=== PATIENT | female | born 1925 | race Hispanic/Latino ===

== ENCOUNTER 2016-06-24 11:42 | Emergency (ER) | payer MEDICARE, BC ==
[2016-06-24 11:42] VITALS: PULSE 93
[2016-06-24 12:01] VITALS: BMI 32.2
[2016-06-24 12:03] VITALS: TEMP 98.7; O2SAT 96
--- NOTE | 2016-06-24 12:14 | ED PDOC ---
Arrival/HPI - General Chief Complaint: Trauma Time Seen by Provider: 06/24/16 12:09 Historian: Patient, Family - History of Present Illness Narrative History of Present Illness (Text): 06/24/16 12:12 89 year old female with a past medical history that includes atrial fibrillation on Warfarin, presents to the emergency department with right buttock pain after mechanical fall on 06/11/16. Family states she has been given Oxycodone for the pain with last dose 10:00 today. She states the patient has taken 8 pills since two days ago with only temporary relief. She reports the patient uses a walker at baseline. PMD: Dr. Gage Berman Past Medical History - Provider Review Nursing Documentation Reviewed: Yes - Reproductive Menopause: No - Cardiac Hx Atrial Fibrillation: Yes Hx Hypertension: Yes Hx Mitral Valve Prolapse: Yes Hx Pacemaker: No - Pulmonary Hx Respiratory Disorders: Yes Hx Emphysema: Yes Other/Comment: Pulmonary HTN - Neurological Hx Paralysis: No - HEENT Hx Cataracts: Yes - Hematological/Oncological Hx Blood Transfusions: No - Musculoskeletal/Rheumatological Hx Musculoskeletal Disorders: Yes - Psychiatric Hx Emotional Abuse: No Hx Physical Abuse: No Hx Substance Use: No - Surgical History Hx Cataract Extraction: Yes Hx Hysterectomy: Yes - Anesthesia Hx Anesthesia Reactions: No Hx Malignant Hyperthermia: No - Suicidal Assessment Feels Threatened In Home Enviroment: No Family/Social History - Physician Review Nursing Documentation Reviewed: Yes Family/Social History: Unknown Family HX Smoking Status: Never Smoked Hx Alcohol Use: No Hx Substance Use: No Hx Substance Use Treatment: No Allergies/Home Meds Allergies/Adverse Reactions: Allergies Iodinated Contrast Media - Oral and [Iodinated Contrast Media - IV Dye] Allergy (Severe, Verified 06/24/16 12:00) RASH shellfish derived Allergy (Severe, Verified 06/24/16 12:00) RASH Home Medications: Home Meds Medication Instructions Recorded Confirmed Acetaminophen [Tylenol Extra 2 tab PO AMHS 10/27/15 06/24/16 Strength] Alprazolam [Xanax] 0.5 mg PO AMHS 10/27/15 06/24/16 Antiox#10/Om3/Dha/Epa/Lut/Zeax 1 cap PO DAILY 10/27/15 06/24/16 [I-Caps with Lutein-[place]joy 3 Sfg] Arformoterol [Brovana] 1 nhi IH DAILY 10/27/15 06/24/16 Ascorbic Acid [Vitamin C 500 mg 500 mg PO DAILY 10/27/15 06/24/16 Tab] Bee Pollen 550 mg PO DAILY 10/27/15 06/24/16 Calcium/Magnesium/Zinc [Sm 1 tab PO DAILY 10/27/15 06/24/16 Upiyeso-Ahllfdwre-Qcvh Tab] Digoxin [Digitek] 125 mcg PO DAILY 10/27/15 06/24/16 Krill/Om-3/Dha/Epa/Phospho/Ast 1 cap PO DAILY 10/27/15 06/24/16 [Megared [place]joy-3 Krill Oil Sfgl] Latanoprost 0.005% Opht [Xalatan 1 drp OU DAILY 10/27/15 06/24/16 Opht] Metoprolol Tartrate [Lopressor] 25 mg PO DAILY 10/27/15 06/24/16 Sertraline [Zoloft] 50 mg PO DAILY 10/27/15 06/24/16 Simvastatin 20 mg PO DAILY 10/27/15 06/24/16 Tiotropium [place] [Spiriva 2.5 mcg IH DAILY PRN 10/27/15 06/24/16 Respimat] Triamterene/Hydrochlorothiazid 1 tab PO DAILY 10/27/15 06/24/16 [Maxzide 75 mg-50 mg Tablet] Vit A/Vit C/Vit E/Zinc/Copper 1 tab PO DAILY 10/27/15 06/24/16 [Preservision Areds Tablet] Warfarin [Coumadin] 2 mg PO DAILY 10/27/15 06/24/16 Zolpidem [Ambien] 10 mg PO HS 10/27/15 06/24/16 Losartan [Cozaar] 50 mg PO DAILY 06/24/16 06/24/16 Sildenafil [Revatio] 20 mg PO BID 06/24/16 06/24/16 Review of Systems - Physician Review All systems were reviewed & negative as marked: Yes - Review of Systems Respiratory: absent: SOB Cardiovascular: absent: Chest Pain Gastrointestinal: absent: Abdominal Pain Musculoskeletal: Other (Right buttock pain) Physical Exam Vital Signs Reviewed: Yes Vital Signs Temp Pulse Resp BP Pulse Ox 06/24/16 15:18 49 L 16 163/55 H 96 06/24/16 12:02 98.7 F 56 L 26 H 133/43 L 96 Temperature: Afebrile Blood Pressure: Normal Pulse: Bradycardic Respiratory Rate: Normal Appearance: Positive for: Well-Appearing, Non-Toxic, Uncomfortable Pain Distress: Mild Mental Status: Positive for: Alert and Oriented X 3 - Systems Exam Head: Present: Atraumatic, Normocephalic Pupils: Present: PERRL Extroacular Muscles: Present: EOMI Conjunctiva: Present: Normal Mouth: Present: Moist Mucous Membranes Neck: Present: Normal Range of Motion Respiratory/Chest: Present: Clear to Auscultation, Good Air Exchange. No: Respiratory Distress, Accessory Muscle Use Cardiovascular: Present: Regular Rate and Rhythm, Normal S1, S2. No: Murmurs Abdomen: Present: Normal Bowel Sounds. No: Tenderness, Distention, Peritoneal Signs Back: Present: Normal Inspection Upper Extremity: Present: Normal Inspection. No: Cyanosis, Edema Lower Extremity: Present: Other (10 cm ecchymosis on right buttock. Tenderness over right lateral pelvis and right lateral femur. ) Neurological: Present: GCS=15, Motor Func Grossly Intact, Normal Sensory Function Skin: Present: Warm, Dry, Normal Color. No: Rashes Psychiatric: Present: Alert, Oriented x 3 Medical Decision Making ED Course and Treatment: XR Hip/Pelvis Quality Assurance Lead: Yayo Tong MD IMPRESSION: Negative study XR Rt Femur Quality Assurance Lead: Yayo Tong MD IMPRESSION: Unremarkable radiographs of the right femur CT Abdomen/Pelvis Quality Assurance Lead: Yayo Tong MD IMPRESSION: Constipation. Mild diverticulosis. No acute intra-abdominal findings. The hips are unremarkable. 06/24/16 15:[address] Ruiz- rec continue pain control and f/u in office disc results and plan for rx and f/u w the pt and her daughter and who are comfortable w this plan - Lab Interpretations Lab Results: 06/24/16 12:25 06/24/16 12:25 Lab Results 06/24/16 12:25: WBC 9.3, RBC 4.60, Hgb 12.5, Hct 38.8, MCV 84.3, MCH 27.2, MCHC 32.2, RDW 16.7 H, Plt Count 334, MPV 10.5, Gran % 82.1 H, Lymph % (Auto) 10.8 L , Coles % (Auto) 6.5 H, Eos % (Auto) 0.5 L, Baso % (Auto) 0.1, Gran # 7.66 H, Lymph # 1.0 L, Coles # 0.6, Eos # 0.1, Baso # 0.01, PT 28.3 H, INR 2.62 H, Sodium 142, Potassium 5.2 H, Chloride 106, Carbon Dioxide 23, Anion Gap 18, BUN 64 H, Creatinine 1.3, Est GFR ( Amer) 47, Est GFR (Non-Af Amer) 39, Random Glucose 121 H, Calcium 9.5, Total Bilirubin 1.1, AST 31, ALT 21, Alkaline Phosphatase 123, Total Protein 8.2, Albumin 4.3, Globulin 3.9, Albumin/ Globulin Ratio 1.1 - RAD Interpretation Radiology Orders: 06/24/16 12:10 FEMUR MIN 2 VIEWS RT [RAD] Stat HIP MIN 2V W/ PELVIS RT [RAD] Stat 06/24/16 14:13 ABD & PELVIS W/O PO OR IV CONT [CT] Stat - Medication Orders Current Medication Orders: Discontinued Medications Ketorolac Tromethamine (Toradol) 10 mg IVP STAT STA Stop: 06/24/16 12:12 Last Admin: 06/24/16 12:29 Dose: 10 MG IVP Administration Document 06/24/16 12:29 [place] (Rec: 06/24/16 12:29 [place] [id number]) Charges for Administration # of IVP Administrations 1 - Scribe Statement The provider has reviewed the documentation as recorded by the Sylvie Leal Provider Scribe Attestation: All medical record entries made by the Sylvie were at my direction and personally dictated by me. I have reviewed the chart and agree that the record accurately reflects my personal performance of the history, physical exam, medical decision making, and the department course for this patient. I have also personally directed, reviewed, and agree with the discharge instructions and disposition. Disposition/Present on Arrival - Present on Arrival Any Indicators Present on Arrival: No History of DVT/PE: No History of Uncontrolled Diabetes: No Urinary Catheter: No History of Decub. Ulcer: No History Surgical Site Infection Following: None - Disposition Have Diagnosis and Disposition been Completed?: Yes Diagnosis: Contusion of buttock Disposition: HOME/ ROUTINE Disposition Time: 15:08 Condition: STABLE Additional Instructions: Please follow up with your doctor on Monday. Return to the ER for any worsening symptoms or for any other concerns. Prescriptions: Cyclobenzaprine [Cyclobenzaprine HCl] 10 mg PO TID PRN #20 tab PRN Reason: Pain, Severe (8-10) Hydrocodone/Acetaminophen [[place] 325 mg-5 mg] 1 - 2 tab PO Q6H PRN #10 tab PRN Reason: Pain, Severe (8-10) Referrals: Cullen OLMEDO,Gage Francisco MD [Primary Care Provider] - Follow up with primary
[2016-06-24 12:35] LABS: ADD MANUAL DIFF? NO
[2016-06-24 12:37] LABS: BASO # 0.01 K/mm3 (0.0-2.0); BASO % 0.1 % (0.0-3.0); EOS # 0.1 (0.0-0.7); EOS % 0.5 % (1.5-5.0); GRAN # 7.66 (1.4-6.5); GRAN % 82.1 % (50.0-68.0); HEMATOCRIT 38.8 % (36.0-48.0); LYMPH % 10.8 % (22.0-35.0); MEAN CELL VOLUME 84.3 fL (80.0-105.0); MEAN CORPUSCULAR HEMOGLOBIN 27.2 pg (25.0-35.0); MEAN CORPUSCULAR HGB CONC 32.2 g/dl (31.0-37.0); MEAN PLATELET VOLUME 10.5 fl (7.0-11.0); MONO # 0.6 (0.1-0.6); MONO % 6.5 % (1.0-6.0); PLATELET COUNT 334 10^3/uL (120.0-450.0); RED CELL DISTRIBUTION WIDTH 16.7 % (11.5-14.5); WHITE BLOOD COUNT 9.3 10^3/ul (4.5-11.0)
[2016-06-24 12:46] LABS: INR 2.62 (0.93-1.08)
[2016-06-24 12:47] LABS: ALB/GLOB RATIO 1.1 (1.1-1.8); BILIRUBIN,TOTAL 1.1 mg/dL (0.2-1.3); CALCIUM 9.5 mg/dL (8.4-10.5); POTASSIUM 5.2 mmol/L (3.6-5.0); TOTAL PROTEIN 8.2 g/dL (5.8-8.3)
--- NOTE | 2016-06-24 14:17 | RAD ---
PROCEDURE: Right Hip and pelvis Radiographs. HISTORY: fall pain COMPARISON: None. FINDINGS: BONES: Normal. No fracture. JOINTS: Normal. SOFT TISSUES: Normal. OTHER FINDINGS: None. IMPRESSION: Negative study
--- NOTE | 2016-06-24 14:18 | RAD ---
PROCEDURE: Right Femur Radiographs. HISTORY: fall pain COMPARISON: None. TECHNIQUE: AP and Lateral Radiographs of the right femur. FINDINGS: FEMUR: Normal. No fracture. SOFT TISSUES: Normal. OTHER FINDINGS: None. IMPRESSION: Unremarkable radiographs of the right femur.
--- NOTE | 2016-06-24 14:44 | CT ---
PROCEDURE: CT Abdomen and Pelvis without intravenous contrast HISTORY: abd pain, right hip pain COMPARISON: None. TECHNIQUE: Without contrast.. Contrast Dose: Radiation dose: Total exam DLP = 930 mGy-cm. This CT exam was performed using one or more of the following dose reduction techniques: Automated exposure control, adjustment of the mA and/or kV according to patient size, and/or use of iterative reconstruction technique. FINDINGS: LOWER THORAX: Unremarkable. LIVER: Unremarkable. No gross lesion or ductal dilatation. GALLBLADDER AND BILE DUCTS: Gallstones PANCREAS: Unremarkable. No gross lesion or ductal dilatation. SPLEEN: Unremarkable. ADRENALS: Unremarkable. No mass. KIDNEYS AND URETERS: Unremarkable. No hydronephrosis. No solid mass. VASCULATURE: Unremarkable. No aortic aneurysm. BOWEL: Unremarkable. No obstruction. No gross mural thickening. Diverticulosis of the sigmoid colon. Mild constipation APPENDIX: Unremarkable. Normal appendix. PERITONEUM: Unremarkable. No free fluid. No free air. LYMPH NODES: Unremarkable. No enlarged lymph nodes. BLADDER: Unremarkable. REPRODUCTIVE: Unremarkable. BONES: No acute fracture. OTHER FINDINGS: None. IMPRESSION: Constipation. Mild diverticulosis. No acute intra-abdominal findings. The hips are unremarkable
[2016-06-24 15:22] VITALS: BP 163/55; PULSE 49; RESP 16
== END 2016-06-24 15:18 | disposition home or self-care (01) ==
LOC: ED 11:42
DX: S30.0XXA Contusion of lower back and pelvis, initial encounter (principal); W19.XXXA Unspecified fall, initial encounter; Y92.9 Unspecified place or not applicable; I10 Essential (primary) hypertension
CPT/HCPCS: 73502; 73552; 74176; 80053; 85025; 85610; 96374; 99285; J1885